=== PATIENT | female | born 1960 | race Caucasian/White ===

== ENCOUNTER → 2017-02-06 | Outpatient (CLI) | payer OTHER ==
[~2017-02-06] MED LIST: ALBUTEROL0.63 MG/3 IH; DELTASONE20 MG PO; GLUCOPHAGE-DPS500 MG PO; PROAIR HFA8.5 GM IH; PROMETHAZINE-C240 ML PO; TYLENOL DPS325 MG PO; ZITHROMAX250 MG PO; ZYRTEC DPS10 MG PO; [UNRECOGNIZED DRUG - OTHER] PO
== END | disposition home or self-care (01) ==
LOC: RAD.S 08:05
DX: Z12.31 Encounter for screening mammogram for malignant neoplasm of breast (principal)